=== PATIENT | female | born 1965 | race Caucasian/White ===

== ENCOUNTER 2025-06-13 11:00 | Outpatient (CLI) | payer BC, SELFPAY ==
[2025-06-13 18:01] LABS: Microscopic, Urine URINE MICROSCOPIC (MICROSCOPIC)
[2025-06-13 18:13] LABS: Bilirubin,Urine Negative (Negative); Color,Urine YELLOW (Yellow); Glucose,Urine (UA) Negative (Negative); Ketones,Urine Negative (Negative); Leukocyte Esterase,Urine Negative (Negative); PH,Urine 7.5 (5.0-8.5); Protein,Urine Negative (Negative); Specific Gravity, Urine 1.010 (1.005-1.030); Urobilinogen,Urine 0.2 EU/dl (0.2)
[2025-06-13 18:17] LABS: Hematocrit 44.4 % (37.0-47.0); Hemoglobin 13.7 g/dL (12.2-16.2); Immature Granulocytes % 0 %; Mean Corpuscular HGB Conc 30.9 g/dL (31.8-35.4); Mean Corpuscular Hemoglobin 30.2 pg (27.0-31.2); Mean Corpuscular Volume 97.8 fl (81-99); Nucleated Red Blood Cells % 0 %; Platelet Count 302 K/mm3 (142-424); Red Blood Count 4.54 M/mm3 (4.20-5.40); Red Cell Distribution Width-SD 45.2 fL; White Blood Count 4.5 K/mm3 (4.8-10.8)
[2025-06-13 18:41] LABS: Bacteria,Urine Trace /lpf; WBC,Urine Occasional #/hpf (0-3)
[2025-06-13 19:13] LABS: Albumin Level 4.8 g/dl (3.5-5.0); Chloride 106 mmol/L (98-107)
[2025-06-13 19:14] LABS: Potassium 4.5 mmoL/L (3.5-5.1); Sodium 141 mmol/L (136-145)
[2025-06-13 19:16] LABS: Alanine Aminotransferase 22 U/L (12-78); Amylase 290 U/L (30-110); Anion Gap 13.5 mEq/L (5-15); Aspartate Amino Transferase 39 U/L (14-36); Blood Urea Nitrogen 15 mg/dl (7-17); Carbon Dioxide 26 mmol/L (22.0-30.0); Creatinine,Serum 0.50 mg/dl (0.52-1.04); Estimated Glomerular Filt Rate 125 ml/min (>60); GFR (African American) 151 ML/MIN (>60)
[2025-06-13 19:17] LABS: Albumin/Globulin Ratio 1.8 (1.1-1.8); Alkaline Phosphatase 93 U/L (38-126); Bilirubin,Total 0.5 mg/dl (0.2-1.3); Calcium 10.0 mg/dl (8.4-10.2); Globulin 2.7 g/dL (1.3-3.2); Glucose 85 mg/dl (74-100); Total Protein,Serum 7.5 g/dl (6.3-8.2)
[2025-06-13 19:29] LABS: Lipase 1654 U/L (23-300)
[2025-06-13 19:47] LABS: Thyroid Stimulating Hormone 1.21 uIU/mL (0.465-4.68)
[2025-06-13 20:05] LABS: Hepatitis C Ab Qual. W/ RFX NEGATIVE (Negative)
[2025-06-15 09:14] LABS: Hepatitis B Surface Antigen Negative (Negative)
--- OUTSIDE RECORDS SUMMARY | 2025-06-15 09:15 | XMS_ITS | Clinical Summary ---
Author Organization [facility] Address [place] [address] Phone Care Team Providers Care Business Division Chair Name Role Phone Ankur Green MD Primary Care Provider [phone] Allergies Active Allergy Reactions Criticality Noted Date [...] (12/19/2018): Added automatically from request for surgery [id number] Surgical History Surgery Date Site/Laterality Comments BREAST [...] Associated Problems Recent Progress Patient-Stated? Author Breast [facility] Breast [facility] Tabitha Culver RN Note: Patient acknowledges understanding of plan of care, available resources and how to contact Nurse Navigator with any future questions or concerns. Medical Devices Implanted Type Area Wooden Boat Builder Device Identifier Shelf Expiration Date Model / [...] EDT Impressions 08/03/2024 8:48 AM EDT Benign ([id number]) RECOMMENDATION: Routine Screening Mammogram in 1 Year Bilateral No additional recommendation No additional laterality COMMENTS: Narrative 08/03/2024 8:48 AM EDT EXAM: MM MAMMO DIGITAL FERNANDO SCREEN BILAT EXAM DATE: 08/02/2024 2:35 PM INDICATION: Z12.31-Encounter for screening mammogram for malignant neoplasm of [id number] COMPARISON STUDIES: Compared with prior studies the most recent being January 11, 2023 TISSUE DENSITY: There are scattered areas of fibroglandular density. FINDINGS: No mammographic evidence of malignancy. Procedure Note Nicole Rockwell MD - 08/03/2024 EXAM: MM MAMMO DIGITAL FERNANDO SCREEN BILAT EXAM DATE: 08/02/2024 2:35 PM INDICATION: Z12.31-Encounter for screening mammogram for malignantneoplasm of [id number]-CM COMPARISON STUDIES: Compared with prior studies the most recent beingApr2022 TISSUE DENSITY: There are scattered areas of fibroglandular density. FINDINGS: No mammographic evidence of malignancy. IMPRESSION: Benign ([id number]) RECOMMENDATION: Routine Screening Mammogram in 1 Year Bilateral No additional recommendation No additional laterality COMMENTS: Ankur Green MD [facility] MAMMOGRAPHY ORDERABLES Final Result from Last 3 Months or Most Recently Relevant to Health Maintenance Insurance PPO PPO Member Subscriber Plan / Payer (Ef fective 2014-Present) Name:Erin Patel Relation to Subscriber:Self Name:Erin Patel Payer ID:[id number] (NAIC) Type:Not on file Address: [address] [place] [phone] Care Teams Business Division Chair Relationship Specialty Start Date End Date Ankur Green MD PCP - General Family Medicine 07/15/12
--- OUTSIDE RECORDS SUMMARY | 2025-06-15 09:15 | XMS_ITS | Clinical Summary ---
Author Organization [facility] Address [facility] [place] [place] [address] Care Team Providers Care Security Officer Name Role Phone Ankur Sena MD Primary Care Provider [phone] Source Comments This information has been disclosed to you from confidential records protectedfrom disclosure by state law. You shall make no further disclosure of thisinformation without the specific, written, and informed release of theindividual to whom it pertains, or as otherwise permitted by law. A generalauthorization for the release of medical or other information is not sufficientfor the purposes of therelease of HIV test results or diagnoses. [id number] Allergies Active Allergy Reactions Criticality Noted Date Comments Oxycodone Nausea And Vomiting 01/20/2019 Penicillins Itching Medium 11/23/2018 Oxycodone-Acetaminophen Nausea And Vomiting Medications ZOSTAVAX, PF, 19,400 unit/0.65 mL injection 5 Active tretinoin (RETIN-A) 0.05 % creamIndication s:Rhytides Apply pea-size amount to entire face at bedtime, starting twice a week and increasing to every other night then every night as tolerated. 20 g 6 2 Active Additional Information Patient not taking.Reported on 11/06/2024 fluorouraciL (EFUDEX) 5 % creamIndication s:Superficial basal cell carcinoma Apply to affected areas on forehead twice a day for 4 weeks. Stop for pain or oozing blood. 40 g 2 Active Additional Information Patient not taking.Reported on 11/06/2024 Active Problems Problem Noted Date Diagnosed Date Encounter for postoperative wound check 06/27/20 14 Neoplasm of uncertain behavior of skin 0 Malignant melanoma of skin of trunk, except scro kennedy 12/25/2008 Actinic keratosis 12/25/2008 Personal history of malignant melanoma of skin 0 12/25/2008 Melanoma Encounters Date Type Department Care Team Description 06/14/2025 Orders Only [facility] [address] [place] [address] Usha Gayle, KAYLEE Right lower quadrant pain (Primary Dx); Right upper quadrant pain; Epigastric pain; Abdominal pain, unspecified abdominal location; Right sided abdominal pain; Elevated pancreatic enzyme from Last 3 Months Family History Medical History Relation Comments Psoriasis Mother Eczema Neg Hx Melanoma Neg Hx Relation Status Comments Mother Social History Tobacco Use Types Packs/Day Years Used Date Smoking Tobacco: Never Smokeless Tobacco: Never Tobacco Cessation:Counseling Given: Not Answered Alcohol Use Standard Drinks/Week Comments No 0 (1 standard drink = 0.6 oz pur e alcohol) PHQ-2 Answer Date Recorded PHQ-2 Total Score 0 11/08/2023 Yearly Questionnaire Answer Date Record ed Do you need any assistance w ith obtaining housing, meals, medication, transportation or medical equipment? No 11/08 Assistance needed for: Not on file 4 Yearly Questionnaire Answer Date Record ed Do you need any assistance w ith obtaining housing, meals, medication, transportation or medical equipment? No 11/08 Assistance needed for: Not on file 4 Yearly Questionnaire Answer Date Record ed Do you need any assistance w ith obtaining housing, meals, medication, transportation or medical equipment? No 11/08 Assistance needed for: Not on file 4 Comments No Sex and Gender Information Value Date Recorded Sex Assigned at Not on file Legal Sex Female 7:40 PM EST Gender Identity Not on file Sexual Orientation Not on file Last Filed Vital Signs Vital Sign Reading Time Taken Comments Blood Pressure - - Pulse - - Temperature - - Respiratory Rate - - Oxygen Saturation - - Inhaled Oxygen Concentration - - Weight 55.3 kg (122 lb) 04/25/2014 10:33 AM EDT Height 152.4 cm (5') 04/25/2014 10:33 AM EDT Body Mass Index 23.83 04/25/2014 10:33 AM EDT Plan of Treatment Health Maintenance Due Date Last Done Comments Abnormal Colonoscopy Follow Up 1965 Hepatitis C Screening (MyChart) 1965 HIV Screening 1981 Cologuard (FIT-DNA) 2008 Colonoscopy 2008 Colorectal Cancer Screening (MyChart) 2008 Stool Testing (gFOBT) 2008 Cervical Cancer Screening/Pa p Smear (MyChart) 03/05/2009 03/05/2006 Immunization: Pneumococcal ( 1 of 1 - PCV) 2013 Mammogram (MyChart) 09/09/2013 09/09/2011, 08/21/2011, 01/14/2010, Additional history exists Melanoma Screening 05/03/2024 05/03/2023, 0 04/27/2022, 03/24/2021, Additional history exists Depression Screening 11/08/2024 11/08/2023 Immunization: COVID-19 ( season) 2025 03/02/2021, 01/31/2021 Immunization: Influenza (MyC blackburn) (#1) 2025 Immunization: DTaP/Tdap/Td ( 2 - Td or Tdap) 08/31/2029 08/31/2019, 12/16/1996 Immunization: RSV (Adult) (1 - 1-dose 75+ series) 2038 Immunization: Zoster Completed 05/18/2019, 03/09/20 19 Procedures Procedure Name Priority Date/Time Associated Diagnosis Comments MAMMO DIAGNOSTIC DIRECT DIGITAL LEFT Routine 09/09/2011 1:44 PM EST CYTOLOGY - IMAGE GUIDED PAP TEST Routine 03/05/2006 12:00 AM EDT from Last 3 Months or Most Recently Relevant to Health Maintenance Results * Mammo Diagnostic Digital Left (09/09/2011 1:44 PM EST) Anatomical Region Laterality Modality Breast Left Mammography 09/09/2011 1:44 PM EST Narrative 09/09/2011 1:51 PM EST [facility] Mammography Imaging Patient: Erin PATEL : 1965 Accn#: [id number] Mammography Exam Exam Date/Time Ordering Physician MAMM-DIAG DIRECT DIGITAL 09/09/2011 13:44 EST ANKUR SENA LT Reason for Exam 6 WK F/U LEFT BREAST ADV; PREV 08/21/11 Report DIRECT DIGITAL DIAGNOSTIC MAMMOGRAM OF THE LEFT BREAST DATED 09/09/2011 CLINICAL HISTORY: This 46-year-old female patient was found to have a new asymmetry in the superior posterior aspect of the left breast on recent screening mammogram. VIEWS OBTAINED: A full 90-degree ML view as well as spot magnification CC and MLO views over the areas of interest are obtained and interpreted using digital mammography. COMPARISON: Multiple screening mammograms between 09/28/2005 and 08/21/2011. FINDINGS: The area of potential new nodular asymmetry in the superior posterior aspect of the left breast is not reproduced on any of today's images. Hence, it is attributed to summation shadow of normal parenchyma. There is a circumscribed mass in the lateral aspect middle third of the left breast on the spot magnification CC view. This has shown chronic stability since 2004 and considered benign. IMPRESSION: No mammographic evidence of malignancy after additional imaging evaluation. RECOMMENDATION: The patient may return to routine annual bilateral screening mammogram in August 2012. Note: The findings and recommendation were discussed with the patient at the completion of examination by Dr. Nuris Marlow. Assessment: 2-Benign finding Recommendation: Normal interval follow-up See body of report for recommendation VERIFIED REPORT Dictated: 09/09/2011 1:53 pm NURIS MARLOW MD Signed (Electronic Signature): NURIS MARLOW MD 09/11/11 11:31 Transcribed by: EV Technologist: TC Procedure Note Nuris Marlow MD - 04/20/2012 [facility] Mammography Imaging Patient: Erin PATEL : 1965 Accn#: [id number] Mammography Exam Exam Date/Time Ordering Physician MAMM-DIAG DIRECT DIGITAL 09/09/2011 13:44 NATHAN BULLARDANKUR Graf Reason for Exam 6 WK F/U LEFT BREAST ADV; PREV 08/21/11 Report DIRECT DIGITAL DIAGNOSTIC MAMMOGRAM OF THE LEFT BREAST DATED 09/09/2011 CLINICAL HISTORY: This 46-year-old female patient was found to have a new asymmetry in the superior posterior aspect of the left breast on recent screening mammogram. VIEWS OBTAINED: A full 90-degree ML view as well as spot magnification CC and MLO views over the areas of interest are obtained and interpreted using digital mammography. COMPARISON: Multiple screening mammograms between 09/28/2005 and 08/21/2011. FINDINGS: The area of potential new nodular asymmetry in the superior posterior aspect of the left breast is not reproduced on any of today's images. Hence, it is attributed to summation shadow of normal parenchyma. There is a circumscribed mass in the lateral aspect middle third of the left breast on the spot magnification CC view. This has shown chronic stability since 2004 and considered benign. IMPRESSION: No mammographic evidence of malignancy after additional imaging evaluation. RECOMMENDATION: The patient may return to routine annual bilateral screening mammogram in August 2012. Note: The findings and recommendation were discussed with the patient at the completion of examination by Dr. Nuris Marlow. Assessment: 2-Benign finding Recommendation: Normal interval follow-up See body of report for recommendation VERIFIED REPORT Dictated: 09/09/2011 1:53 pm NURIS MARLOW MD Signed (Electronic Signature): NURIS MARLOW MD 09/11/11 11:31 Transcribed by: NILO Technologist: DARRYN Ankur Sena MD [facility] MAMMOGRAPHY ORDERABLES Devorah l Result * Pap Smear, Pathology (03/05/2006 12:00 AM EDT) 03/05/2006 Narrative [facility] - 03/05/2006 12:00 AM EDT Signed by [email or web address] on 03/11/2006 at 13:35:22 Patient: Erin PATEL Note: All result statuses are Final unless otherwise noted. Tests: (1) PAP Smear (BURLAP MAN) PAP Smear NEG CASE: [id number] PATIENT: Erin PATEL Specimen Source: Cervical / Endocervical ThinPrep Clinical History: LMP: 12/14; Additional testing requested: HPV if ASC US Specimen Adequacy: Satisfactory for evaluation with endocervical component present INTERPRETATION-RESULT: NEGATIVE FOR INTRAEPITHELIAL LESION OR MALIGNANCY IMPORTANT PLEASE NOTE: This specimen has been analyzed with the assistance of the ThinPrep Imaging System (DUHEM.), an automated imaging and review system. Following the automated imaging, selected vo from every slide are reviewed by a used equipment sales representative and/or pathologist. PRIOR PAP SMEAR DIAGNOSES: No cases found DHARA PATTERSON Baby Formula Mixer, (ASCP) Electronically signed 03/11/2006 The Pap test is a screening test designed to aid in the detection of premalignant and malignant conditions of the uterine cervix. It is not a diagnostic procedure and should not be the sole means used to detect cervical pathology. Both false positive and false negative results have been experienced. Note: An exclamation roger (!) indicates a result that was not dispersed into the flowsheet. Document Creation Date: 03/11/2006 1:35 PM (1) Order result status: Final Collection or observation date-time: 03/05/2006 00:00 Requested date-time: Receipt date-time: 03/05/2006 00:00 Reported date-time: 03/11/2006 13:35 Referring Physician: Ordering Physician: TONY HUERTAS (NICKY) Specimen Source: Pap Test (Thin Prep) Screen Source: PXS Filler Order Number: [id number] Lab site: [place] [id number] Resulting Agency Comment PAP Smear us Tony Huertas MD PATHOLOGY/CYTOLOGY ORDERAB LES Final Result [facility] from Last 3 Months or Most Recently Relevant to Health Maintenance Insurance BLUE ACCESS Care Teams Security Officer Relationship Specialty Start Date End Date Ankur Sena MD [address] [place] [address] PCP - General 11/04/06
--- OUTSIDE RECORDS SUMMARY | 2025-06-15 09:15 | XMS_ITS | Encounter Summary ---
Author Organization [facility] Address [address] [place] [address] Care Team Providers Care Rn Hemo Dialysis Name Role Phone Ankur Green MD Primary Care Provider [phone] Source Comments This information has been disclosed to you from confidential records protectfrom disclosure by state law. You shall make no further disclosure of thisinformation without the specific, written, and informed release of theindividual to whom it pertains, or as otherwise permitted by law. A generalauthorization for the release of medical or other information is not sufficientfor the purposes of the release of HIV test results or diagnoses. [id number] Reason for Referral * Imaging/Cardiovascular Scan (Emergency) - Authorized Specialty Diagnoses / Procedures Referred By Melchor mathias Referred To Contact Radiology Diagnoses Right lower quadrant pain Right upper quadrant pain Epigastric pain Right sided abdominal pain Elevated pancreatic enzyme Procedures CT Abdomen and Pelvis With IV contrast Usha Gayle NP [address] [place] [address] Phone: tel: fax: Referral ID Status Reason Start Date Expiration Date V isits Requested Visits Authorized [id number] Authorized 06/14/2025 12/11/2025 1 1 Encounter Details Date Type Department Care Team (Late st Contact Info) Description 06/14/2025 Orders Only [facility] [address] [place] [id number] Usha Gayle NP [address] [place], [place] [id number] Right lower quadrant pain (Primary Dx); Right upper quadrant pain; Epigastric pain; Abdominal pain, unspecified abdominal location; Right sided abdominal pain; Elevated pancreatic enzyme Social History Tobacco Use Types Packs/Day Years [...] on file Sexual Orientation Not on file documented as of this encounter Plan of Treatment Scheduled Orders Name Type Priority Associated Diagnoses Orde r Schedule CT Abdomen and Pelvis With IV contrast Imaging STAT Right lower quadrant pain Right upper quadrant pain Epigastric pain Right sided abdominal pain Elevated pancreatic enzyme 1 Occurrences starting 06/14/2025 until 12/27/2025 US Abdomen Limited Imaging Routine Right lower quadrant pain Right upper quadrant pain Epigastric pain Abdominal Pain, Unspecified Abdominal Location 1 Occurrences starting 06/14/2025 until 12/27/2025 documented as of this encounter Visit Diagnoses Diagnosis Right lower quadrant pain- Primary Right upper quadrant pain Abdominal pain, right upper quadrant Epigastric pain Abdominal pain, epigastric Abdominal pain, unspecified abdominal location Right sided abdominal pain Abdominal pain, unspecified site Elevated pancreatic enzyme documented in this encounter Care Teams Rn Hemo Dialysis Relationship Specialty Start Date End Date Ankur Green MD [address] [place] [address] PCP - General 11/04/06 documented as of this encounter
== END 2025-06-13 23:59 ==
LOC: LAB.DROPOF 06-15 09:14
PROVIDERS: PCP Nurse Practitioner; Visit Provider Nurse Practitioner
DX: R10.9 Unspecified abdominal pain (principal); R07.81 Pleurodynia; Z11.59 Encounter for screening for other viral diseases
CPT/HCPCS: 80053; 81001; 82150; 83690; 84443; 85025; 86803; 87340; 87389

== ENCOUNTER 2025-06-14 14:58 | Outpatient (CLI) | payer BC, SELFPAY ==
--- OUTSIDE RECORDS SUMMARY | 2025-06-14 15:01 | XMS_ITS | Clinical Summary ---
Author Organization [facility] Address [address] [facility] [address] [place] [address] Phone Care Team Providers Care Shoe Shiner Name Role Phone Ankur Green MD Primary Care Provider [phone] Allergies Active Allergy Reactions Criticality Noted Date Comments Oxycodone Nausea And Vomiting 01/20/2019 Penicillins Itching Medium 11/23/2018 Medications multivitamin, stress formula (ALLBEE VIT WITH C & B COMPLEX) Oral Tablet Take 1 Tab by mouth daily. Active Cholecalciferol , Vitamin D3, 2,000 unit Oral Capsule Take by mouth. Activ e TURMERIC ORAL Take 500 mg by mouth. Active calcium carbonate (TUMS) 200 mg calcium (500 mg) Oral Tablet, Chewable Take 1 Tab by mouth daily. Active HYDROcodone-angella taminophen (NORCO) 5-325 mg Oral Tablet Take 1 Tab by mouth every 4 hours as needed for Acute Pain > 3 Days Medically Necessary (R52). 20 Tab 9 Active Active Problems Problem Noted Date Diagnosed Date Intraductal papilloma of breast, right 9 Overview (12/19/2018): Added automatically from request for surgery [id number] Surgical History Surgery Date Site/Laterality Comments BREAST BIOPSY 11/25/2018 Right FOOT SURGERY SKIN CANCER EXCISION BREAST BIOPSY 01/20/2019 Right Excision of Right Retroareolar Mass; Surgeon: Sangeetha Swain MD; Location: [facility]; Service: General Medical History Medical History Date Comments Cancer (HCC) melanoma Family History Medical History Relation Name Comments Cancer Father prostate Relation Name Status Comments Father Social History Tobacco Use Types Packs/Day Years Used Date Smoking Tobacco: Never Smokeless Tobacco: Never Alcohol Use Standard Drinks/Week Comments No 0 (1 standard drink = 0.6 oz pur e alcohol) Comments No Sex and Gender Information Value Date Recorded Sex Assigned at Not on file Legal Sex Female 6:14 AM EDT Gender Identity Not on file Sexual Orientation Not on file Obstetrics History Para Term AB IAB SAB Ectopic Multiple Livin g Live Births 0 Last Filed Vital Signs Vital Sign Reading Time Taken Comments Blood Pressure 122/68 01/20/2019 1:17 PM EDT Pulse 72 01/20/2019 1:17 PM EDT Temperature 36.5 C (97.7 F) 01/20/2019 1:03 PM EDT Respiratory Rate 16 01/20/2019 1:17 PM EDT Oxygen Saturation 98% 01/20/2019 1:03 PM EDT Inhaled Oxygen Concentration - - Weight 56.7 kg (125 lb) 08/02/2024 2:35 PM EDT Height 152.4 cm (5') 08/02/2024 2:35 PM EDT Body Mass Index 24.41 08/02/2024 2:35 PM EDT Plan of Treatment Health Maintenance Due Date Last Done Comments Annual Wellness Exam 1966 Hepatitis C Screening 1981 HPV/Pap Cotest 1993 Cologuard 2008 FIT 2008 Sigmoidoscopy 2008 Virtual Colonography 2008 Cervical Cancer Screening 03/05/2009 Pap Smear 03/05/2009 03/05/2006 Pneumococcal Vaccine 50+ (1 of 1 - PCV) 2013 Colon Cancer Screening 10/09/2020 Colonoscopy 10/09/2020 10/09/2015 COVID-19 Vaccine (3 - season) 2025 03/02/2021, 01/31/2021 Influenza Vaccine (#1) 2025 Breast Cancer Screening 08/02/2026 08/02/20 24, 01/11/2023, 08/22/2021, Additional history exists DTaP/TDaP/Td (2 - Td or Tdap) 08/31/2029 08/31/2019, 12/16/1996 Zoster Completed 05/18/2019, 03/09/2019 Hepatitis B Vaccine Aged Out No longe r eligible based on patient's age to complete this topic Meningococcal B Vaccine Aged Out No l onger eligible based on patient's age to complete this topic Goals Goal Patient Goal Type Associated Problems Recent Progress Patient-Stated? Author Breast [facility] Breast [facility] Tabitha Culver RN Note: Patient acknowledges understanding of plan of care, available resources and how to contact Nurse Navigator with any future questions or concerns. Medical Devices Implanted Type Area Punch Finisher Device Identifier Shelf Expiration Date Model / Serial / Lot Hardware In Toe Procedures Procedure Name Priority Date/Time Associated Diagnosis Comments MM MAMMO DIGITAL FERNANDO SCREEN BILAT Routine 08/02/2024 2:35 PM EDT Encounter for screening mammogram for malignant neoplasm of breast from Last 3 Months or Most Recently Relevant to Health Maintenance Results * MM MAMMO DIGITAL FERNANDO SCREEN BILAT (08/02/2024 2:35 PM EDT) Anatomical Region Laterality Modality Breast Bilateral Mammography 08/02/2024 2:35 PM EDT Impressions 08/03/2024 8:48 AM EDT Benign ([id number]) RECOMMENDATION: Routine Screening Mammogram in 1 Year Bilateral No additional recommendation No additional laterality COMMENTS: Narrative 08/03/2024 8:48 AM EDT EXAM: MM MAMMO DIGITAL FERNANDO SCREEN BILAT EXAM DATE: 08/02/2024 2:35 PM INDICATION: Z12.31-Encounter for screening mammogram for malignant neoplasm of [id number] COMPARISON STUDIES: Compared with prior studies the most recent being January 11, 2023 TISSUE DENSITY: There are scattered areas of fibroglandular density. FINDINGS: No mammographic evidence of malignancy. Procedure Note Nicole Rockwell MD - 08/03/2024 EXAM: MM MAMMO DIGITAL FERNANDO SCREEN BILAT EXAM DATE: 08/02/2024 2:35 PM INDICATION: Z12.31-Encounter for screening mammogram for malignantneoplasm of [id number] COMPARISON STUDIES: Compared with prior studies the most recent beingApr2022 TISSUE DENSITY: There are scattered areas of fibroglandular density. FINDINGS: No mammographic evidence of malignancy. IMPRESSION: Benign ([id number]) RECOMMENDATION: Routine Screening Mammogram in 1 Year Bilateral No additional recommendation No additional laterality COMMENTS: Ankur Green MD [facility] MAMMOGRAPHY ORDERABLES Final Result from Last 3 Months or Most Recently Relevant to Health Maintenance Insurance PPO PPO Member Subscriber Plan / Payer (Ef fective 2014-Present) Name:Erin Patel Relation to Subscriber:Self Name:Eirn Patel Payer ID:[id number] (NAIC) Type:Not on file Address: [address] [place] [phone] Care Teams Shoe Shiner Relationship Specialty Start Date End Date Ankur Green MD PCP - General Family Medicine 07/15/12
--- NOTE | 2025-06-14 15:30 | CT_ITS ---
PROCEDURE INFORMATION: Exam: CT Abdomen And Pelvis With Contrast Exam date and time: 06/14/2025 5:13 PM Age: 60 years old Clinical indication: Pain; Other: Pelvic; Additional info: Lower right sided abdominal and pelvic pain. TECHNIQUE: Imaging protocol: Computed tomography of the abdomen and pelvis with contrast. Radiation optimization: All CT scans at this facility use at least one of these dose optimization techniques: automated exposure control; mA and/or kV adjustment per patient size (includes targeted exams where dose is matched to clinical indication); or iterative reconstruction. Contrast material: ISOVUE; Contrast volume: 75 ml; Contrast route: IV; Other contrast: Oral, gastrographin, 2 cups; COMPARISON: No relevant prior studies available. FINDINGS: Lungs: The visualized lung bases are clear. Pleural spaces: There are no pleural effusions. Heart: The visualized portions of the heart are unremarkable. There is no evidence of pericardial fluid collections. Liver: The liver demonstrates punctate calcifications consistent with remote granulomatous organism exposure. There are 2 subcentimeter focal liver hypodensities that cannot be further characterized on the current examination. The liver is otherwise within range of normal. Gallbladder and biliary ducts: The gallbladder is normal. Pancreas: Normal. No ductal dilation. Spleen: There is a 12 mm rim calcified splenic hypodensity medially most likely reflecting benign cyst. There are 2 additional subcentimeter small peripheral hypodensities with capsular retraction involving the superior spleen There is mild contour irregularity of the superolateral spleen in his region which may reflect sequela of remote injury/area of infarct. Adrenal glands: Normal. No mass. Kidneys and ureters: There are a few tiny bilateral renal hypodensities which are too small to accurately characterize. Statistically, these may be cysts. No follow-up imaging required unless clinical parameters dictate otherwise. A few pelvic phleboliths are inseparable from the distal ureters but no secondary changes are seen to favor ureteral stone. Stomach and bowel: Incomplete gastrointestinal contrast limits evaluation of bowel. Mild diverticulosis is present in the distal colon. Evaluation of the colon is limited due to incomplete distension. A few scattered areas apparent mural thickening involving the colon may be due to incomplete distension but can not entirely exclude mural thickening, most noted in the splenic flexure region. Correlate clinically. Unopacified loops of small bowel within range of normal. The stomach is normal. The duodenum is unremarkable. Appendix: A normal appendix is identified. Intraperitoneal space: There is a mild swirled appearance to the left parasagittal central mesentery which could reflect small internal hernia. No evidence of obstruction. No evidence of intraperitoneal free air. 9 x 12 mm nodular density along the left anterior mid abdominal intraperitoneal space with internal Hounsfield units measuring approximately 10 which may reflect a small lymph node or potentially minor fluid collection. No significant free fluid. Vasculature: There are a few benign phleboliths in the pelvis. Lymph nodes: There is a 9 x 12 mm nodular density along the left anterior mid abdominal intraperitoneal space with internal Hounsfield units measuring approximately 10 which may reflect a small lymph node or potentially minor fluid collection. Urinary bladder: The bladder is partially decompressed. Reproductive: There is a subtle rounded focus of mildly increased attenuation in the posterior uterine mid body measuring 2.9 x 2.9 x 2.2 cm suggestive of fibroid. No adnexal cysts or masses are identified.There is no evidence of free intraperitoneal or pelvic fluid. Bones/joints: The thoracolumbar spine demonstrates moderate degenerative changes at multiple levels. There is no evidence of acute fracture. Soft tissues: No acute intra-abdominal process. IMPRESSION: 1. A few colonic diverticula without evidence of diverticulitis. 2. 2.9 cm posterior uterine body fibroid. 3. Mild swirled appearance to the left parasagittal central mesentery could reflect small internal hernia without evidence of obstruction. 4. 9 x 12 mm nodular density along the left anterior mid abdominal intraperitoneal space with internal Hounsfield units measuring approximately 10 which may reflect a small lymph node or potentially minor fluid collection. 5. 2 Incompletely characterized subcentimeter focal liver hypointensities. In a low-risk patient, this is most likely to be benign and no further follow-up is recommended. In a high-risk patient, follow-up MRI in 3-6 months is recommended (or earlier if warranted by the patient's specific clinical circumstances). (Reference: Anneliese) COMMENTS: Consistent with the [employer] [place] [employer]'s Incidental Findings Committee white paper (J Am Hillary Radiol 2018): Any incidental renal lesion less than 1 cm or classified as too small to characterize, or any incidental cystic renal lesion characterized as simple-appearing, is likely benign. No follow-up imaging is recommended for these lesions per consensus recommendations based on imaging criteria. REFERENCES: Anneliese MCDANIEL, et al. Management of Incidental Liver Lesions on CT: A White Paper of the ACR Incidental Findings Committee. J Am Hillary Radiol. 2017;14(11):8867-0085.
[2025-06-14] MEDS: IOPAMIDOL-370 (76%);100ML BOTTLE 75 ML IV (17:28)
[2025-06-14] MEDS: SODIUM CHLORIDE 0.9% 10ML SYR (RAD ONLY) 10 ML IV (17:28)
== END 2025-06-14 23:59 | disposition home or self-care (01) ==
LOC: RAD 14:59
PROVIDERS: PCP Nurse Practitioner; Visit Provider Nurse Practitioner
DX: K57.30 Diverticulosis of large intestine without perforation or abscess without bleeding (principal); D25.9 Leiomyoma of uterus, unspecified; R93.3 Abnormal findings on diagnostic imaging of other parts of digestive tract; R93.2 Abnormal findings on diagnostic imaging of liver and biliary tract; R74.8 Abnormal levels of other serum enzymes
CPT/HCPCS: 74177; Q9967

== ENCOUNTER 2025-06-19 15:03 | Outpatient (CLI) | payer BC, SELFPAY ==
--- OUTSIDE RECORDS SUMMARY | 2025-06-19 15:07 | XMS_ITS | Encounter Summary ---
Author Organization [facility] Address [address] [place] [address] Care Team Providers Care Fur Nailer Name Role Phone Ankur Green MD Primary Care Provider [phone] Source Comments This information has been disclosed [...] release of HIV test results or diagnoses. [id number] Reason for Referral * Imaging/Cardiovascular Scan (Emergency) - Authorized Specialty Diagnoses / Procedures Referred By Melchor mathias Referred To Contact Radiology Diagnoses Right lower quadrant pain Right upper quadrant pain Epigastric pain Right sided abdominal pain Elevated pancreatic enzyme Procedures CT Abdomen and Pelvis With IV contrast Usha Gayle NP [address] [place] [address] Phone: tel: fax: Referral ID Status Reason Start Date Expiration Date V isits Requested Visits Authorized [id number] Authorized 06/14/2025 12/11/2025 1 1 Encounter Details Date Type Department Care Team (Late st Contact Info) Description 06/14/2025 Orders Only [facility] [address] [place] [phone] Usha Gayle NP [address] [place], [place] [id number] Right lower quadrant pain (Primary Dx); Right [...] enzyme documented in this encounter Care Teams Fur Nailer Relationship Specialty Start Date End Date Ankur Green MD [address] [place] [address] PCP - General 11/04/06 documented as of this encounter
--- OUTSIDE RECORDS SUMMARY | 2025-06-19 15:07 | XMS_ITS | Clinical Summary ---
Author Organization [facility] Address [facility] [place] [address] Care Team Providers Care Service Secretary Name Role Phone Ankur Sena MD Primary Care Provider [phone] Source Comments This information has been disclosed [...] therelease of HIV test results or diagnoses. [id number] Allergies Active Allergy Reactions Criticality Noted [...] Department Care Team Description 06/14/2025 Orders Only [facility] [address] [place] [address] Usha Gayle, KAYLEE Right lower quadrant pain [...] PM EST Narrative 09/09/2011 1:51 PM EST [facility] Mammography Imaging Patient: Erin PATEL : 1965 Accn#: [id number] Mammography Exam Exam Date/Time Ordering Physician MAMM-DIAG [...] Procedure Note Nuris Marlow MD - 04/20/2012 [facility] Mammography Imaging Patient: Erin PATEL : 1965 Accn#: [id number] Mammography Exam Exam Date/Time Ordering Physician MAMM-DIAG [...] by: NILO Technologist: DARRYN Ankur Sena MD [facility] [place] MAMMOGRAPHY ORDERABLES Devorah l Result * Pap Smear, Pathology (03/05/2006 12:00 AM EDT) 03/05/2006 Narrative [facility] - 03/05/2006 12:00 AM EDT Signed by [email or web address] on 03/11/2006 at 13:35:22 Patient: Erin PATEL Note: All result statuses are Final unless otherwise noted. Tests: (1) PAP Smear (SOLAR SALES ASSESSOR) PAP Smear NEG CASE: [id number] PATIENT: Erin PATEL Specimen Source: Cervical / Endocervical ThinPrep Clinical History: LMP: 12/14; Additional testing requested: HPV if ASC US Specimen Adequacy: Satisfactory for evaluation with endocervical component present INTERPRETATION-RESULT: NEGATIVE FOR INTRAEPITHELIAL LESION OR MALIGNANCY IMPORTANT PLEASE NOTE: This specimen has been analyzed with the assistance of the ThinPrep Imaging System ([employer].), an automated imaging and review system. Following the automated imaging, selected vo from every slide are reviewed by a lpn instructor and/or pathologist. PRIOR PAP SMEAR DIAGNOSES: No cases found DHARA PATTERSON Tray Room Worker, (ASCP) Electronically signed 03/11/2006 The Pap test [...] Prep) Screen Source: PXS Filler Order Number: [id number] Lab site: [place] [id number] Resulting Agency Comment PAP Smear us Tony Huertas MD PATHOLOGY/CYTOLOGY ORDERAB LES Final Result [facility] from Last 3 Months or Most Recently Relevant to Health Maintenance Insurance BLUE ACCESS Care Teams Service Secretary Relationship Specialty Start Date End Date Ankur Sena MD [address] [place] [address] PCP - General 11/04/06
[2025-06-19 15:08] LABS: Hematocrit 37.8 % (37.0-47.0); Hemoglobin 12.4 g/dL (12.2-16.2); Immature Granulocytes % 0.2 %; Mean Corpuscular HGB Conc 32.8 g/dL (31.8-35.4); Mean Corpuscular Hemoglobin 31.5 pg (27.0-31.2); Mean Corpuscular Volume 95.9 fl (81-99); Nucleated Red Blood Cells % 0 %; Platelet Count 319 K/mm3 (142-424); Red Blood Count 3.94 M/mm3 (4.20-5.40); Red Cell Distribution Width-SD 42.9 fL; White Blood Count 5.1 K/mm3 (4.8-10.8)
[2025-06-19 15:12] LABS: Alanine Aminotransferase 17 U/L (12-78); Albumin Level 4.1 g/dl (3.5-5.0); Albumin/Globulin Ratio 1.7 (1.1-1.8); Alkaline Phosphatase 79 U/L (38-126); Amylase 181 U/L (30-110); Anion Gap 12.2 mEq/L (5-15); Aspartate Amino Transferase 48 U/L (14-36); Bilirubin,Total 0.4 mg/dl (0.2-1.3); Blood Urea Nitrogen 18 mg/dl (7-17); Calcium 9.6 mg/dl (8.4-10.2); Carbon Dioxide 28 mmol/L (22.0-30.0); Chloride 104 mmol/L (98-107); Creatinine,Serum 0.50 mg/dl (0.52-1.04); Estimated Glomerular Filt Rate 125 ml/min (>60); GFR (African American) 151 ML/MIN (>60); Globulin 2.4 g/dL (1.3-3.2); Glucose 86 mg/dl (74-100); Potassium 4.2 mmoL/L (3.5-5.1); Sodium 140 mmol/L (136-145); Total Protein,Serum 6.5 g/dl (6.3-8.2)
[2025-06-19 15:28] LABS: Lipase 835 U/L (23-300)
== END 2025-06-19 23:59 | disposition home or self-care (01) ==
LOC: LAB.DROPOF 15:03
PROVIDERS: PCP Nurse Practitioner; Visit Provider Nurse Practitioner
DX: R10.11 Right upper quadrant pain (principal); R10.31 Right lower quadrant pain; R10.13 Epigastric pain; R74.8 Abnormal levels of other serum enzymes
CPT/HCPCS: 80053; 82150; 83690; 85025